=== PATIENT | female | born 1965 | race Caucasian/White ===

== ENCOUNTER → 2017-05-13 | Outpatient (CLI) | payer OTHER ==
--- NOTE | 2017-05-13 12:50 | RAD ---
3 views right shoulder radiograph 05/13/2017 Clinical indication: Right shoulder pain status post injury. Comparison: None. Findings: No acute fracture or traumatic malalignment. Joint spaces are maintained. Particular soft tissues are unremarkable. Impression: No acute osseous abnormality.
== END | disposition home or self-care (01) ==
LOC: RAD 10:19
PROVIDERS: ATTEND Neuromusculoskeletal Medicine, Sports Medicine
DX: S49.91XD Unspecified injury of right shoulder and upper arm, subsequent encounter (principal); X58.XXXD Exposure to other specified factors, subsequent encounter
CPT/HCPCS: 73030

== ENCOUNTER → 2020-07-18 | Outpatient (CLI) | payer MEDICARE, MEDICAID ==
--- NOTE | 2020-07-18 17:53 | CARD ---
MR#: [id number] Date of Study: 07/18/2020 Ordering Physician: KAREN POON, Referring Physician: KAREN POON, Tech: Brooke Drake APPROVED REPORT EXAM: Two-dimensional and M-mode echocardiogram with Doppler and color Doppler. Other Information Quality : FairHR: 62bpm INDICATION Pre-Op Syncope RISK FACTORS Hyperlipidemia Smoking 2D DIMENSIONS Left Atrium(2D)3.1 (1.6-4.0cm)IVSd1.0 (0.7-1.1cm) Aortic Root(2D)2.8 (2.0-3.7cm)LVDd4.6 (3.9-5.9cm) LVOT Diameter2.1 (1.8-2.4cm)PWd1.1 (0.7-1.1cm) LVDs2.4 (2.5-4.0cm)FS (%) 49.1 % SV79.3 mlLVEF(%)80.5 (>50%) Aortic Valve AoV Peak Fan.177.6cm/sAoV VTI38.5cm AO Peak GR.12.6mmHgLVOT Peak Fan.134.9cm/s LVOT VTI 29.32cmAO Mean GR.6mmHg DISHA (VMAX)2.89el0VXE (VTI)2.57cm2 Mitral Valve MV E Asaofngk33.3cm/sMV DECEL VDDC524rl MV A Fzoguqtl75.6cm/sMV HCE83ko E/A Ratio1.3MVA (PHT)4.09cm2 TDI E/Lateral E'7.1E/Medial E'12.6 Pulmonary Valve PV Peak Dcwswxjw76.1cm/sPV Peak Grad.3mmHg Pulmonary Vein S1 Tleftrrc97.4cm/sD2 Pxuojwhj78.7cm/s PVa [id number] LEFT VENTRICLE The left ventricle is normal size. There is normal left ventricular wall thickness. The left ventricu lar systolic function is normal. The Ejection Fraction is 55-60%. There is normal LV segmental wall m otion. RIGHT VENTRICLE The right ventricle is normal size. There is normal right ventricular wall thickness. The right ventr icular systolic function is normal. ATRIA The left atrium size is normal. The right atrium size is normal. The interatrial septum is intact wit h no evidence for an atrial septal defect or patent foramen ovale as noted on 2-D or Doppler imaging. AORTIC VALVE The aortic valve is normal in structure and function. Doppler and Color Flow revealed no significant aortic regurgitation. There is no significant aortic valvular stenosis. Calculated aortic valve area is 2.71 cm2 with maximum pressure gradient of 13 mmHg and mean pressure gradient of 7 mmHg. MITRAL VALVE The mitral valve is normal in structure and function. There is no evidence of mitral valve prolapse. There is no mitral valve stenosis. Doppler and Color-flow revealed trace mitral regurgitation. TRICUSPID VALVE The tricuspid valve is normal in structure and function. Doppler and Color Flow revealed trace tricus pid regurgitation. There is no tricuspid valve stenosis. PULMONIC VALVE The pulmonic valve is not well visualized. Doppler and Color Flow revealed no pulmonic valvular regur gitation. GREAT VESSELS The aortic root is normal in size. The IVC is normal in size and collapses >50% with inspiration. PERICARDIAL EFFUSION There is no evidence of significant pericardial effusion. Critical Notification Critical Value: No <Conclusion> The left ventricular systolic function is normal. The Ejection Fraction is 55-60%. There is normal LV segmental wall motion. Trace mitral regurgitation. Trace tricuspid regurgitation. There is no evidence of significant pericardial effusion. Signed by : Jasper Vázquez, Electronically Approved : 07/18/2020 17:53:16
== END ==
LOC: ECHO 13:09
PROVIDERS: ATTEND Internal Medicine
DX: R03.0 Elevated blood-pressure reading, without diagnosis of hypertension (principal)
CPT/HCPCS: 93306

== ENCOUNTER → 2020-09-24 | Outpatient (CLI) | payer MEDICARE, MEDICAID ==
--- NOTE | 2020-09-24 13:55 | RAD ---
MR#: [id number] Date of Study: 09/24/2020 Ordering Physician: SANDI AQUINO, Referring Physician: BAKARI RODRIGUES Tech: CHRISTIAN Rodriguez, ARRT (R) (N) APPROVED REPORT Test Type: Exercise Stress Nurse/Tech: Yolis Cook RN Test Indications: Pre-op clearance Cardiac History: smoker Medications: See Electronic Medical Record Medical History: See Electronic Medical Record Resting ECG: SR Resting Heart Rate: 62 bpm Resting Blood Pressure: 164/82mmHg Pretest Chest Pain: None Nurse/Tech Notes Lungs CTA, S1S2 Consent: The procedure was explained to the patient in lay terms. Informed consent was witnessed. Leno eout was entered into [employer]. History and Stress Test performed by MARY Muniz Stress Symptoms Dyspnea POST EXERCISE Reason for Termination: Reached target heart rate Target HR: Yes Max HR: 158 bpm Exercise duration: 8:17 min:sec, 3 Stage Max Blood Pressure: 180/61mmHg Blood Pressure response to exercise: Normal blood pressure response during stress. Heart Rate response to exercise: normal response Chest Pain: No. Arrhythmia: No. ST Change: No. INTERPRETATION Stress EKG Conclusion: No evidence of stress induced EKG changes. Imaging Protocol IMAGE PROTOCOL: Rest Tc-99m/stress Tc-99m 1 day Rest: Stress: Viability: Radiopharm.Tc99m GxeozzxpzLq24g Sestamibi Mmpp20kIl 31mCi Img Date 09/24/2020 09/24/2020 Inj-Img Ymtu10xhi. 60min. Rest Admin Site:IV - Right WristAdministrator:MARY Muniz Stress Admin Site: IV - Right WristAdministrator: Gavino Diane, (R)(N) STRESS DATA End Diast. Vol.70.0mlLVEDV index BSA41.0ml End Syst. Vol.10.0mlLVESV index BSA6.0ml Myocardial Izae723.0gEject. Jcchnswi47.0% Stress Scores Regional WT1.00Summed WT10.00 Regional WM0.00Summed WM0.00 The rest and stress images show normal perfusion, normal contraction and thickening. LV Perf. Quant 17 Seg. SSS0.00 17 Seg. SRS2.00 17 Seg. SDS0.00 Stress Defect Extent (% LAD)0.00Rest Defect Extent (% LAD)6.30Rev. Defect Extent (% LAD)0.00 Stress Defect Extent (% LCX) 0.00Rest Defect Extent (% LCX)0.00Rev. Defect Extent (% LCX)0.00 Stress Defect Extent (% RCA)0.00Rest Defect Extent (% RCA)0.00Rev. Defect Extent (% RCA)0.00 Stress Defect Extent (% HIRAM)0.00Rest Defect Extent (% HIRAM)2.40Rev. Defect Extent (% HIRAM)0.00 Other Information Quality:Good Risk Assessment: Low Risk Conclusion 1. No evidence of EKG changes with stress testing. 2. Normal perfusion at stress/rest. 3. Low risk study. 4. EF > 60%. Signed by : Sandi Aquino, Electronically Approved : 09/24/2020 13:54:40
== END ==
LOC: NM 09:32
PROVIDERS: ATTEND Internal Medicine Cardiovascular Disease
DX: Z01.810 Encounter for preprocedural cardiovascular examination (principal); Z87.891 Personal history of nicotine dependence
CPT/HCPCS: 78452; 93017; A9500

== ENCOUNTER → 2020-11-20 | Outpatient (CLI) | payer MEDICARE, MEDICAID ==
[~2020-11-20] MED LIST: ACID REDUCER PO; ASPI-630 PO; BUPR150T15 PO; CHOLESTERAL MED PO; FLUT1DIS IH; FLUT9.9S NS; LORA10CA PO; LURA120T PO; OXCA300T3 PO; TRAZ300T2 PO
--- NOTE | 2020-11-21 15:21 | NUR ---
IP: Dr Flanagan nurse was notified of pt covid positive results. She stated she would notify pt and reschedule her surgery.
--- NOTE | 2020-11-21 15:26 | NUR ---
IP: I did call pt to see if she had questions concerning her covid positive test. All questions answered and pt verbalized understanding.
== END ==
LOC: LAB 10:39
PROVIDERS: ATTEND Surgery
DX: Z01.812 Encounter for preprocedural laboratory examination (principal); U07.1 COVID-19
CPT/HCPCS: U0003; U0005

== ENCOUNTER 2020-11-22 07:30 | Inpatient (IN) | payer MEDICARE, MEDICAID ==
[~2020-11-22] VITALS: Ht 162.6 cm; Wt 68.0 kg
[~2020-11-22 07:30] MED LIST changes: +HEPARIN SODIUM 5,000 UNIT in IV RINGERS,LACTATED 500ML 500 ML IRR ONE
[2020-12-25] MEDS ORDERED: IV RINGERS,LACTATED 1000ML 1,000 ML IV SCH (06:00)
[2020-12-25] MEDS ORDERED: fentaNYL PF VIAL 100 MCG/2 ML VIAL IVP PRN ×2 (06:00)
[2020-12-25] MEDS ORDERED: HEPARIN SODIUM 5,000 UNIT in IV RINGERS,LACTATED 500ML 500 ML IRR ONE (06:00)
[2020-12-25] MEDS ORDERED: HYDROmorphone 2 MG/ML VIAL IVP PRN (06:00)
[2020-12-25] MEDS ORDERED: PROCHLORPERAZINE 10 MG/2 ML VIAL. IVP PRN (06:00)
[2020-12-25 10:53] VITALS: BP 146/73
[2020-12-25] MEDS ORDERED: MORPHINE SULFATE 2 MG/ML INJ. IV PRN (11:00)
[2020-12-25] MEDS ORDERED: hydrALAZINE 20 MG/ML VIAL. IVP PRN (11:00)
[2020-12-25] MEDS ORDERED: ONDANSETRON PF 4 MG/2 ML VIAL. IVP PRN (11:00)
[2020-12-25] MEDS ORDERED: 0.9 % SODIUM CHLORIDE 10 ML DISP.SYRIN. IV PRN (11:00)
[2020-12-25] MEDS ORDERED: LABETALOL 20 MG/4 ML DISP.SYRIN. IVP PRN (11:00)
[2020-12-25] MEDS ORDERED: HYDROcodone/APAP 5/325MG 1 TAB TABLET PO PRN ×2 (11:00)
[2020-12-25 11:10] LABS: BASO # 0.1 x10^3/uL (0.0-0.2); BASO % 1 % (0-3); EOS # 0.3 x10^3/uL (0.0-0.7); EOS % 2 % (0-3); HEMATOCRIT 42.6 % (36.0-47.0); HEMOGLOBIN 14.4 g/dL (12.0-15.5); LYMPH # 3.4 x10^3/uL (1.0-4.8); LYMPH % 27 % (24-48); MEAN CORPUSCULAR HEMOGLOBIN 31 pg (25-35); MEAN CORPUSCULAR HGB CONC 34 g/dL (31-37); MEAN CORPUSCULAR VOLUME 92 fL (79-100); MONO # 0.8 x10^3/uL (0.0-1.1); MONO % 7 % (0-9); NEUT # 7.8 x10^3/uL (1.8-7.7); NEUT % 63 % (31-73); PLATELET COUNT 238 x10^3/uL (140-400); RED BLOOD COUNT 4.61 x10^6/uL (3.50-5.40); WHITE BLOOD COUNT 12.4 x10^3/uL (4.0-11.0)
[2020-12-25 11:15] LABS: CALCIUM 9.1 mg/dL (8.5-10.1); CREATININE 0.8 mg/dL (0.6-1.0); GFR 74.7; POTASSIUM 3.9 mmol/L (3.5-5.1)
--- NOTE | 2020-12-25 11:24 | DISCH ---
DISCHARGE INSTRUCTIONS Condition on Discharge Condition on Discharge: Stable Activity After Discharge Activity Instructions for Disc: Resume previous activity Bathing Instructions: Shower-keep dressing dry (Can shower after 48 hours from surgery ) Lifting Instructions after Dis: No heavy lifting Driving Instructions after Dis: Do not drive (Until you have full range of motion of neck or while taking pain medications. ) Diet after Discharge Diet after Discharge: Cardiac Wound Incision Care Wound/Incision Care: Ice to area for comfort, Other, see below (Keep incision clean and dry at all times except when showering. NO SOAKING/BATHS) Checks after Discharge Checks after discharge: Check blood press - daily Contacting the DR. after DC Call your doctor for: If your condition worsens (neck swelling that worsens, pain that does not improve, bleeding, signs of infection) Follow-Up Follow up with: Vascular surgery, Roslyn Bennett NP 01/14 at 8:15am. [id number], CHRISTINE Seth Dec 25, 2020 11:24
[2020-12-25] MEDS ORDERED: CETIRIZINE HCL 10 MG TABLET. PO PRN (11:45)
[2020-12-25] MEDS ORDERED: LIDOCAINE 1% PF 2 ML VIAL. ONE (12:32)
[2020-12-25] MEDS ORDERED: LIDOCAINE 1% Multi-Dose 20 ML VIAL. ONE (12:32)
[2020-12-25] MEDS ORDERED: MIDAZOLAM HCL/PF 2 MG/2 ML VIAL. ONE (12:32)
--- NOTE | 2020-12-25 12:34 | HP ---
ADMIT DATE: 12/25/2020 HISTORY OF PRESENT ILLNESS: The patient is a 55-year-old female with hypertension, bipolar disorder and active tobacco abuse, who presents for elective repair of her left carotid artery. She was evaluated back in 06/2020 for this problem. Please reference my note and history and physical from 07/06/2020 attached to the chart. The patient denies any symptoms since I last saw her in particular, no stroke, TIA, or amaurosis symptoms. The patient does continue to actively smoke and has completely ignored recommendations for smoking cessation. She fully understands the risks explained to her regarding smoking. PAST MEDICAL HISTORY: Reviewed and is unchanged. PAST SURGICAL HISTORY: Reviewed and is unchanged. ALLERGIES: She has no known drug allergies. MEDICATION LIST: Reviewed and is unchanged. REVIEW OF SYSTEMS: A 14-system review of systems was reviewed with the patient today and there are no pertinent positive findings. PHYSICAL EXAMINATION: VITAL SIGNS: The patient is afebrile. Her vital signs are stable. GENERAL: This is a pleasant female in no apparent distress. HEENT: Intact without carotid bruit. CARDIOVASCULAR: S1, S2, regular rate and rhythm without murmur. PULMONARY: Clear to auscultation bilaterally without rales, rhonchi or wheezing. ABDOMEN: Soft, nontender, nondistended. SKIN: Intact, warm, and dry without lesion. NEUROLOGIC: Intact without focal neurologic deficits. ASSESSMENT AND PLAN: High-grade left internal carotid stenosis. The patient's primary symptomatology revolved around syncopal episodes, which I believe are unrelated to her carotid artery disease. She does have significant stenosis of the proximal left internal carotid artery warranting repair. She did undergo cardiac evaluation and clearance with Cardiology and was found to be an acceptable candidate to proceed. She understands all risks, benefits, and alternatives of the procedure today and is agreeable to proceed. GINA GARCIA: Naya TID: [id number]
[2020-12-25] MEDS ORDERED: ROPIVacaine 0.5% PF 20 ML VIAL. ONE (12:35)
[2020-12-25] MEDS ORDERED: LIDOCAINE 1% PF 30 ML VIAL. ONE (13:27)
[2020-12-25] MEDS ORDERED: SURGICEL FIBRILLAR 1X2 EACH. ONE (13:27)
[2020-12-25] MEDS ORDERED: niCARdipine INJ. IV ONE ×2 (13:58→13:59)
[2020-12-25] MEDS ORDERED: hydrALAZINE 20 MG/ML VIAL. ONE (13:58)
[2020-12-25] MEDS ORDERED: LIDOCAINE 2% PF 5 ML VIAL. ONE (13:59)
[2020-12-25] MEDS ORDERED: PROPOFOL 50 ML IV ONE (13:59)
[2020-12-25] MEDS ORDERED: HEPARIN for IV BOLUS 10,000 UNIT/10 ML VIAL. ONE (13:59)
[2020-12-25] MEDS: ACETAMINOPHEN 325 MG TABLET. PO SCH ×2 (14:00→22:00)
[2020-12-25] MEDS ORDERED: fentaNYL PF VIAL 100 MCG/2 ML VIAL ONE (14:15)
[2020-12-25] MEDS ORDERED: METOPROLOL IV PUSH 5 MG/5 ML VIAL. IVP ONE (14:33)
[2020-12-25] MEDS ORDERED: ONDANSETRON PF 4 MG/2 ML VIAL. ONE (14:44)
[2020-12-25] MEDS ORDERED: ePHEDrine PF IN SALINE 50 MG/10 ML SYRINGE. IV ONE (14:50)
--- NOTE | 2020-12-25 15:33 | PDOC ---
BRIEF OPERATIVE NOTE Date: Dec 25, 2020 Pre-Op Diagnosis High-grade left internal carotid stenosis Active tobacco abuse Hypertension Hyperlipidemia Post-Op Diagnosis Same Procedure Performed Left carotid endarterectomy with eversion technique Surgeon Ugo Bradley DO, FACS Anesthesia Type: Local Blood Loss 20 mL Findings High-grade left internal carotid stenosis Complications None Operative Note Full operative note dictated UGO BRADLEY DO Dec 25, 2020 15:33
[2020-12-25] MEDS ORDERED: PROCHLORPERAZINE 10 MG/2 ML VIAL. ONE (15:42)
[2020-12-25] MEDS ORDERED: MORPHINE SULFATE 2 MG/ML INJ. ONE (15:42)
[2020-12-25] MEDS: MORPHINE SULFATE 2 MG/ML INJ. IVP PRN ×2 (15:43→15:54)
[2020-12-25] MEDS ORDERED: HYDROmorphone 2 MG/ML VIAL ONE (16:10)
--- NOTE | 2020-12-25 16:47 | OP ---
DATE OF SURGERY: 12/25/2020 VASCULAR SURGERY OPERATIVE REPORT ATTENDING SURGEON: Darryn Flanagan DO. PLATE WORKER HELPER: SUAL Dumont. PREOPERATIVE DIAGNOSES: 1. High-grade asymptomatic left internal carotid stenosis. 2. Active tobacco abuse. 3. Hypertension. 4. Hyperlipidemia. POSTOPERATIVE DIAGNOSES: 1. High-grade asymptomatic left internal carotid stenosis. 2. Active tobacco abuse. 3. Hypertension. 4. Hyperlipidemia. PROCEDURE: Left carotid endarterectomy with eversion technique. ANESTHESIA: Local with MAC. SPECIMENS: None. ESTIMATED BLOOD LOSS: 20 mL. COMPLICATIONS: None. PREOPERATIVE INDICATIONS: The patient is a 55-year-old female who was found to have high-grade left internal carotid stenosis after a syncopal workup. The patient underwent appropriate perioperative risk stratification and was found to be an acceptable candidate to proceed after evaluation by Cardiology. The patient understood all risks, benefits and alternatives of the procedure prior to proceeding. DESCRIPTION OF PROCEDURE: The patient was brought to the operating suite after receiving a left-sided cervical block per Anesthesia as well as invasive monitoring lines. The patient was prepped and draped in sterile fashion. Following this, a time-out procedure was performed. It was confirmed that the correct operative site was marked and draped and the patient did receive appropriate perioperative antibiotics. Following this, a left-sided sternocleidomastoid incision was made, carried through skin and subcutaneous tissue. Dissection was carried down through the platysma muscle until sternocleidomastoid muscle was identified. Sternocleidomastoid muscle was reflected laterally exposing the jugular vein. Jugular vein was dissected on its anterior, medial surface up to the level of the facial vein where the facial vein was individually ligated and divided with silk ligatures. Next, the common carotid artery was carefully identified and circumferentially dissected and controlled with vessel loop. I also was able to carefully identify the vagus nerve and this was preserved throughout its entire course. Next, the patient was heparinized per weight-based protocol. Following this, careful dissection of the carotid bifurcation was performed. The superior thyroid artery was identified and controlled with a vessel loop. The external carotid artery was also circumferentially dissected and controlled with a vessel loop. The patient had a very high carotid bifurcation, which made the dissection and exposure difficult. I was able to eventually dissect and expose the mid to distal internal carotid artery, which was healthy and soft in preparation for clamping. After confirming adequate hemodynamic status as well as appropriate circulation time of the heparin, the internal carotid artery was clamped followed by the common carotid artery followed by the external carotid artery and superior thyroid artery. The patient had no changes in her neurologic status after clamping and was following all commands. Next, an 11 blade scalpel was used to create an arteriotomy and this was extended using Mancera scissors. The internal carotid artery was transected from the carotid bifurcation. This did reveal a functionally occluded high-grade stenosis of the proximal internal carotid artery. Next, an endarterectomy plane was created using a [place]yon elevator and I was able to jose the plaque completely out of the internal carotid artery up to a healthy distal endpoint, which was directly visualized within my field. Copious amounts of heparinized saline solution were used to identify any potential loose fragments and all loose fragments were manually removed under direct vision. Once I was satisfied with the endarterectomy, I continued onto the common carotid artery and external carotid artery and we were able to endarterectomize these to my satisfaction. Again, in similar fashion, all loose fragments and debris were removed manually. Once I was satisfied with the endarterectomy, then the internal carotid artery was reattached to the carotid bifurcation using a 6-0 Prolene suture and then the posterior suture line was completed first followed by the anterior suture line. Prior to completing the arteriotomy, I did backbleed and flushed the vessels appropriately and then the arteriotomy was closed and flow was restored to the external carotid artery and common carotid artery and superior thyroid artery and 4-5 heartbeats were allowed to flush any potential debris through the external system. After confirming the patient's hemodynamic status to be stable, the internal carotid artery clamp was slowly released and then following was completely removed. The patient had no changes in her normal neurologic status and was following all commands the entire case. We had good hemostasis at the level of the surgical site. Next, an 8-H[place]er drain was placed through the base of the neck and then Fibrillar was used for raw surface bleeding. The patient was administered protamine as well. Surgical field was inspected for hemostasis and hemostasis was obtained using Bovie electrocautery and Hemoclips. Once I was satisfied with the hemostasis, then the platysmal layer was closed using running 3-0 Vicryl suture, followed by 4-0 Monocryl for the skin, followed by Dermabond. Sterile drain dressing was placed at the drain exit site. The drain was secured using a 3-0 nylon suture. The patient tolerated the procedure well and was following all commands and was transferred to the postanesthesia care unit in stable condition. ALEX/ERUM DR: Naya TID: [id number]
[2020-12-25] MEDS: IV NORMAL SALINE 1000ML BAG 1,000 ML IV SCH (18:28)
[2020-12-25 19:22] VITALS: BP 174/79
[2020-12-25] MEDS: oxyCODONE IR 5 MG TABLET PO PRN (19:43)
[2020-12-25] MEDS ORDERED: traZODone 100 MG TABLET. PO SCH (21:00)
[2020-12-25] MEDS ORDERED: LURASIDONE 40 MG TABLET. PO SCH (21:00)
--- NOTE | 2020-12-25 21:43 | HP ---
ADMIT DATE: 12/25/2020 CHIEF COMPLAINT: Postop left carotid endarterectomy. HISTORY OF PRESENT ILLNESS: The patient is a pleasant 55-year-old female who underwent a left carotid endarterectomy today. I was called by the postop nurse, been requested to go and admit the patient overnight. PAST MEDICAL HISTORY: The above-mentioned carotid endarterectomy earlier today, polypharmacy, allergic rhinitis, depression, anxiety, seizures, asthma. ALLERGIES: None. FAMILY HISTORY: Diabetes. SOCIAL HISTORY: She does not drink, smoke or take drugs. MEDICATIONS: Reviewed. She is on Claritin, aspirin, Trileptal, Wellbutrin, trazodone, Latuda, Advair, Flonase, vitamins. REVIEW OF SYSTEMS: GENERAL: No history of weight change, weakness or fevers. SKIN: No bruising, hair changes or rashes. EYES: No blurred, double or loss of vision. NOSE AND THROAT: No history of nosebleeds, hoarseness or sore throat. HEART: No history of palpitations, chest pain or shortness of breath on exertion. LUNGS: Denies cough, hemoptysis, wheezing or shortness of breath. GASTROINTESTINAL: Denies changes in appetite, nausea, vomiting, diarrhea or constipation. GENITOURINARY: No history of frequency, urgency, hesitancy or nocturia. NEUROLOGIC: Denies history of numbness, tingling, tremor or weakness. PSYCHIATRIC: No history of panic, anxiety or depression. ENDOCRINE: No history of heat or cold intolerance, polyuria or polydipsia. EXTREMITIES: Denies muscle weakness, joint pain, pain on walking or stiffness. PHYSICAL EXAMINATION: VITALS: Within normal limits and are stable. GENERAL: No apparent distress. Alert and oriented. HEENT: Normal cephalic atraumatic, external auditory canals are patent EYES: Extraocular muscles are intact, pupils are equally round and reactive to light and accommodation MUSCULOSKELETAL: Well developed, well nourished, good range of motion ENDOCRINE: No thyromegaly was palpated LYMPHATICS: No cervical chain or axillary nodes were noted HEMATOPOIETIC: No bruising NECK: She has clean, dry and intact dressing on the left side of her neck. LUNGS: Clear to auscultation in all lung cobb without rhonchi or wheezing. HEART: RRR, S1, S2 present. Peripheral pulses intact, no obvious murmurs were noted. ABDOMEN: Soft, nontender. Positive bowel sounds no organomegaly, normal bowel sounds. EXTREMITIES: Without any cyanosis, clubbing, or edema. Pedal pulses intact, Homans sign is negative. NEUROLOGIC: Normal speech, normal tone. A and O x 3, moves all extremities, no obvious focal deficits. PSYCHIATRIC: Normal affect, normal mood. Stable. SKIN: No ulcerations or rashes, good skin turgor, no jaundice. VASCULAR: Good capillary refill, neurovascular bundle appears to be intact. LABORATORY DATA: White count is 12, hemoglobin 14, platelets 238. Electrolytes are normal. ASSESSMENT AND PLAN: Postop left carotid endarterectomy. The patient is going to be observed overnight. We will continue her home meds, wound care, advance her diet, p.r.n. pain meds, DVT prophylaxis. Hope to discharge tomorrow if stable. NUHA/ANA/HARDEEP DR: NUHA/belkis TID: [id number]
[2020-12-25 22:16] VITALS: BP 124/58
[2020-12-26] MEDS: IV NORMAL SALINE 1000ML BAG 1,000 ML IV SCH (00:20)
[2020-12-26] MEDS: oxyCODONE IR 5 MG TABLET PO PRN ×2 (00:34→09:17)
[2020-12-26 02:21] VITALS: BP 118/56
[2020-12-26] MEDS: ACETAMINOPHEN 325 MG TABLET. PO SCH (06:00)
[2020-12-26 07:00] VITALS: BP 128/59
[2020-12-26] MEDS ORDERED: buPROPion XL 150 MG TAB.ER.24H. PO SCH (08:00)
[2020-12-26] MEDS ORDERED: ASPIRIN CHEWABLE 81 MG TABLET. PO SCH (09:00)
[2020-12-26] MEDS ORDERED: OXcarbazepine 300 MG TABLET PO SCH (09:00)
--- NOTE | 2020-12-26 09:33 | PDOC3 ---
Discharge Summary Visit Information Date of Admission: Dec 25, 2020 Date of Discharge: Dec 26, 2020 Final Diagnosis High-grade left internal carotid stenosis Active tobacco abuse Hypertension Hyperlipidemia allergic rhinitis, depression, anxiety, seizures, asthma. Brief Hospital Course Allergies Allergies Coded Allergies Type Severity Reaction Last Updated Verified No Known Drug Allergies 12/25/20 No Vital Signs Vital Signs Date Time Temp Pulse Resp B/P (MAP) Pulse Ox O2 Delivery O2 Flow Rate FiO2 12/26/20 09:17 92 Room Air 12/26/20 09:13 91 128/59 12/26/20 07:00 99.5 16 99.5 Lab Results Laboratory Tests Test 12/25/20 11:00 White Blood Count 12.4 x10^3/uL (4.0-11.0) Red Blood Count 4.61 x10^6/uL (3.50-5.40) Hemoglobin 14.4 g/dL (12.0-15.5) Hematocrit 42.6 % (36.0-47.0) Mean Corpuscular Volume 92 fL (79-100) Mean Corpuscular Hemoglobin 31 pg (25-35) Mean Corpuscular Hemoglobin Concent 34 g/dL (31-37) Red Cell Distribution Width 13.0 % (11.5-14.5) Platelet Count 238 x10^3/uL (140-400) Neutrophils (%) (Auto) 63 % (31-73) Lymphocytes (%) (Auto) 27 % (24-48) Monocytes (%) (Auto) 7 % (0-9) Eosinophils (%) (Auto) 2 % (0-3) Basophils (%) (Auto) 1 % (0-3) Neutrophils # (Auto) 7.8 x10^3/uL (1.8-7.7) Lymphocytes # (Auto) 3.4 x10^3/uL (1.0-4.8) Monocytes # (Auto) 0.8 x10^3/uL (0.0-1.1) Eosinophils # (Auto) 0.3 x10^3/uL (0.0-0.7) Basophils # (Auto) 0.1 x10^3/uL (0.0-0.2) Sodium Level 142 mmol/L (136-145) Potassium Level 3.9 mmol/L (3.5-5.1) Chloride Level 103 mmol/L (98-107) Carbon Dioxide Level 30 mmol/L (21-32) Anion Gap 9 (6-14) Blood Urea Nitrogen 11 mg/dL (7-20) Creatinine 0.8 mg/dL (0.6-1.0) Estimated GFR (Cockcroft-Gault) 74.7 Glucose Level 130 mg/dL (70-99) Calcium Level 9.1 mg/dL (8.5-10.1) Laboratory Tests Test 12/25/20 11:00 White Blood Count 12.4 x10^3/uL (4.0-11.0) Red Blood Count 4.61 x10^6/uL (3.50-5.40) Hemoglobin 14.4 g/dL (12.0-15.5) Hematocrit 42.6 % (36.0-47.0) Mean Corpuscular Volume 92 fL (79-100) Mean Corpuscular Hemoglobin 31 pg (25-35) Mean Corpuscular Hemoglobin Concent 34 g/dL (31-37) Red Cell Distribution Width 13.0 % (11.5-14.5) Platelet Count 238 x10^3/uL (140-400) Neutrophils (%) (Auto) 63 % (31-73) Lymphocytes (%) (Auto) 27 % (24-48) Monocytes (%) (Auto) 7 % (0-9) Eosinophils (%) (Auto) 2 % (0-3) Basophils (%) (Auto) 1 % (0-3) Neutrophils # (Auto) 7.8 x10^3/uL (1.8-7.7) Lymphocytes # (Auto) 3.4 x10^3/uL (1.0-4.8) Monocytes # (Auto) 0.8 x10^3/uL (0.0-1.1) Eosinophils # (Auto) 0.3 x10^3/uL (0.0-0.7) Basophils # (Auto) 0.1 x10^3/uL (0.0-0.2) Sodium Level 142 mmol/L (136-145) Potassium Level 3.9 mmol/L (3.5-5.1) Chloride Level 103 mmol/L (98-107) Carbon Dioxide Level 30 mmol/L (21-32) Anion Gap 9 (6-14) Blood Urea Nitrogen 11 mg/dL (7-20) Creatinine 0.8 mg/dL (0.6-1.0) Estimated GFR (Cockcroft-Gault) 74.7 Glucose Level 130 mg/dL (70-99) Calcium Level 9.1 mg/dL (8.5-10.1) Brief Hospital Course Ms. Gómez is a 55 old admit for carotid stenosis, Left carotid endarterectomy with eversion technique by Dr. Amin on 12/25, she did well, Discharge Information Condition at Discharge: Improved Follow Up: Weeks Disposition/Orders: D/C to Home Scheduled Aspirin (Aspirin) 81 Mg Tab.chew, 1 TAB PO DAILY for vascular health, #30 Ref 3 (Reported) Entered as Reported by: MEGAN FAITH on 11/20/20 1144 Last Taken: Unknown Dose on 12/24/20 Last Action: Continued on 12/25/20 110 by SAUL RAZA Bupropion Hcl (Wellbutrin Xl) 150 Mg Tab.er.24h, 1 TAB PO DAILYWBKFT for depression, #30 Ref 2 (Reported) Entered as Reported by: MEGAN FAITH on 11/20/20 1142 Last Taken: Unknown Dose on 12/24/20 Last Action: Continued on 12/25/20 110 by SAUL RAZA Lurasidone Hcl (Latuda) 120 Mg Tablet, 1 TAB PO QHS for depression for 30 Days, #30 Ref 0 (Reported) Entered as Reported by: MEGAN FAITH on 11/20/20 1143 Last Taken: Unknown Dose on 12/24/20 Last Action: Converted on 12/25/20 110 by SAUL RAZA Oxcarbazepine (Trileptal) 300 Mg Tablet, 1 TAB PO DAILY for bipolar disorder, #60 Ref 1 (Reported) Entered as Reported by: MEGAN FAITH on 11/20/20 1144 Last Taken: Unknown Dose on 12/21/20 Last Action: Continued on 12/25/20 110 by SAUL RAZA Trazodone Hcl (Trazodone Hcl) 300 Mg Tablet, 300 MG PO HS for sleep, (Reported) Entered as Reported by: MEGAN FAITH on 11/20/20 1151 Last Taken: Unknown Dose on 12/24/20 Last Action: Converted on 12/25/201108 by SAUL RAZA [Cholesteral Med] , PO DAILY, (Reported) Entered as Reported by: MEGAN FAITH on 11/20/20 1213 Last Action: HELD on 12/25/201108 by SAUL RAZA Scheduled PRN Fluticasone Propionate (Flonase Allergy Relief) 9.9 Ml [place].susp, 2 SPRAYS NS PRN 1-2XD PRN for ALLERGIES, (Reported) Entered as Reported by: MEGAN FAITH on 11/20/20 114 Last Action: HELD on 12/25/201108 by SAUL RAZA Fluticasone/Salmeterol (Advair 100-50 Diskus) 1 Each Disk.w.dev, 1 PUFF IH PRN BID PRN for ALLERGIES, #1 Ref 5 (Reported) Entered as Reported by: MEGAN FAITH on 11/20/20 1142 Last Taken: Unknown Dose on 12/23/20 Last Action: HELD on 12/25/201108 by SAUL RAZA Loratadine (Claritin) 10 Mg Capsule, 10 MG PO PRN PRN for ALLERGIES, (Reported) Entered as Reported by: MEGAN FAITH on 11/20/20 114 Last Taken: Unknown Dose on 12/24/20 Last Action: Converted on 12/25/201108 by SAUL RAZA [otc acid corn husk baler] , PO PRN PRN for DYSPEPSIA, (Reported) Entered as Reported by: MEGAN FAITH on 11/20/20 115 Last Taken: Unknown Dose on 12/25/20 0700 Last Action: HELD on 12/25/201108 by SAUL RAZA Patient Instructions Patient Instructions > 30 Justicifation of Admission Dx: Justifications for Admission: Justification of Admission Dx: No ANNE BURGOS MD Dec 26, 2020 09:33
[2020-12-26] MEDS ORDERED: POLY17PO29 PO (09:38)
[2020-12-26] MEDS ORDERED: HYDR-2761 PO (09:38)
[2020-12-26] MEDS ORDERED: AMLO-186 PO (09:38)
[2020-12-26] MEDS ORDERED: POLYETHYLENE GLYCOL 3350 17 GM PACKET. PO ONE (09:45)
--- NOTE | 2020-12-26 10:08 | PDOC ---
Provider Note Date of Service: DATE: 12/26/20 TIME: 10:03 Provider Note Provider Note Vascular S: Patient seen in room this morning by Dr. Paul as well as me later in the morning. She has no complaints. Reports doing well postoperatively. ITZEL drain has been removed. O: Vital signs stable, afebrile Awake, alert, no apparent distress Neck incision is clean, dry, intact without surrounding erythema or hematoma. ITZEL drain has been removed, minimal drainage. Nutrition Counselor strength is equal bilaterally, motor function intact bilateral lower extremities. Tongue is midline, speech is clear and fluent. A/P: High-grade left carotid stenosis Postop day 1 of left carotid endarterectomy, Patient has been seen by Dr. Flanagan and is doing well postoperatively. She is stable for discharge from our standpoint once medically stable. Appreciate hospitalist assistance in hospitalization and discharge. She will follow up with us in 2 to 3 weeks as scheduled. Justicifation of Admission Dx: Justifications for Admission: Justification of Admission Dx: No CHRISTINE BENSON Dec 26, 2020 10:08
--- NOTE | 2020-12-26 10:16 | NUR ---
SS following for discharge planning. SS reviewed pt chart and discussed with pt RN. Pt is from home and is currently on room air. Pt had left carotid endarterectomy on 12/25/2020. Discharge order on the chart for home with self care.
[2020-12-26 11:00] VITALS: BP 110/53
--- NOTE | 2020-12-26 13:13 | NUR ---
Discharge Note: ROBERT THURSTON [address] Discharge instructions and discharge home medications reviewed with Patient and a copy given. All questions have been answered and understanding verbalized. The following instructions and handouts were given: post carotid endarterectomy, follow up appointments, new prescriptions, and incision care. pt Dc'd in stable condition via wheelchair accompanied by friend
== END 2020-12-26 13:34 | disposition home or self-care (01) | DRG 39 ==
LOC: OPSVCIP 12-25 10:30 → 2 SOUTH 12-25 16:20
PROVIDERS: ADMIT Internal Medicine; ATTEND Internal Medicine
PROC: 03CN0ZZ Extirpation of Matter from Left External Carotid Artery, Open Approach (ICD-10-PCS; 2020-12-25)
PROC: 03CL0ZZ Extirpation of Matter from Left Internal Carotid Artery, Open Approach (ICD-10-PCS; 2020-12-25)
PROC: 03CJ0ZZ Extirpation of Matter from Left Common Carotid Artery, Open Approach (ICD-10-PCS; principal; 2020-12-25 13:30)
DX: I65.22 Occlusion and stenosis of left carotid artery (principal); E78.5 Hyperlipidemia, unspecified; F31.9 Bipolar disorder, unspecified; F41.9 Anxiety disorder, unspecified; I10 Essential (primary) hypertension; J45.909 Unspecified asthma, uncomplicated; Z83.3 Family history of diabetes mellitus
CPT/HCPCS: 36415; 80048; 85025; A4364; A4930; A6402; C1751; J0360; J0690; J0780; J1170; J1644; J2250; J2270; J2405; J2704; J2795; J3010; J3490; J7030; J7040; J7120; G0378